=== PATIENT | female | born 1995 | race Caucasian/White ===

== ENCOUNTER 2024-08-31 12:59 | Emergency (ER) | payer MEDICAID ==
[~2024-08-31] VITALS: Ht 162.6 cm; Wt 111.4 kg
[2024-08-31 13:10] VITALS: BP 158/89; PULSE 121; RESP 18; TEMP 97.9; O2SAT 95
== END 2024-08-31 14:38 | disposition left against medical advice (07) ==
LOC: ER 12:59
DX: K92.0 Hematemesis (principal); Z53.21 Procedure and treatment not carried out due to patient leaving prior to being seen by health care provider